=== PATIENT | male | born 1940 | race Caucasian/White ===

== ENCOUNTER 2019-09-13 07:03 | Day surgery (SDC) | payer MEDICARE, BC ==
--- NOTE | 2019-09-11 13:39 | NUR ---
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 SHE STATED SHE SPOKE WITH THE PT YEST AND THE PT HAD SEEN DR. LAGUNA IN HIS OFFICE AND GOT THE APPROVAL TO BE OFF HIS PLAVIX SO PT FOLLOW HIS DIRECTION. ALICIA STATE SHE CALLED LUZ ELENA'S OFFICE AND REQUESTED A CLEARANCE BUT HASN'T RECEIVED ANYTHING BACK AT THIS TIME.
[~2019-09-13] VITALS: Ht 170.2 cm; Wt 70.8 kg
[~2019-09-13 07:03] MED LIST: COREG 3.1253.125 MG PO; ISOSORBIDE MONO60 M1 PO; LIPITOR80 MG PO; PLAVIX75 MG PO
[2019-09-13 08:15] VITALS: BP 110/67; Ht 170.2 cm; Wt 70.8 kg
[2019-09-13 08:22] LABS: HEMOGLOBIN 13.6 g/dL (13.5-17.5); MCH 31.3 pg (26.0-34.0); MCV 92.2 fL (80.0-100.0); MEAN PLATELET VOLUME 9.7 fL (7.4-10.4); RBC 4.34 10x6/uL (4.20-6.10); RDW 13.9 % (11.5-14.5); WBC 5.6 10x3/uL (4.8-10.8)
--- NOTE | 2019-09-13 11:58 | NUR ---
PROCEDURE CANCELLED D/T PT TAKING ASA. IV D/C'D AND PT ADVISED TO F/U OF DR. GARCIA AND METAL FORGER'S ASSISTANT.
== END 2019-09-13 11:52 | disposition home or self-care (01) ==
LOC: D.OPS 07:03 → D.PAN 08:15 → D.OPS 09:40
PROVIDERS: Anesthesiology; ATTEND Urology
DX: G57.91 Unspecified mononeuropathy of right lower limb (principal); N20.0 Calculus of kidney; Z53.9 Procedure and treatment not carried out, unspecified reason

== ENCOUNTER 2019-09-27 06:43 | Day surgery (SDC) | payer MEDICARE, BC ==
[~2019-09-27] VITALS: Ht 170.2 cm; Wt 70.8 kg
[2019-09-27] MEDS ORDERED: BAYER CHEWABLE81 MG PO (07:03)
[2019-09-27 07:11] VITALS: BP 109/60; Ht 170.2 cm; Wt 70.8 kg
[2019-09-27 07:20] LABS: HEMATOCRIT 40.9 % (42.0-54.0); HEMOGLOBIN 13.6 g/dL (13.5-17.5); MCH 31.3 pg (26.0-34.0); MCHC 33.3 g/dL (31.0-37.0); MEAN PLATELET VOLUME 9.4 fL (7.4-10.4); RBC 4.35 10x6/uL (4.20-6.10); RDW 13.7 % (11.5-14.5); WBC 5.5 10x3/uL (4.8-10.8)
--- NOTE | 2019-09-27 09:50 | OP ---
PATIENT NAME: JEWELS GUERRERO MEDICAL RECORD: [id number] :38 LOCATION:D.OPS ADMISSION DATE: SURGEON: KENZIE GARCIA MD DATE OF OPERATION: 09/27/2019 SURGEON: Kenzie Garcia MD ANESTHESIA: General anesthesia by Patrick Olivera CRNA DIAGNOSES: An 8-mm right lower pole renal stone, bulbar urethral stricture. PROCEDURE: Cystoscopy, right extracorporeal shock wave lithotripsy times 1500 shocks. FINDINGS: Radiodense right renal stone, bulbar urethral stricture. ESTIMATED BLOOD LOSS: None. CLINICAL HISTORY: This is a 78-year-old male with a history of kidney stones. He was found on imaging to have an 8-mm right lower pole renal stone. He wants to have this treated with lithotripsy. Due to the size of the stone, I had the intention to place a right ureteral stent. 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 He is on Plavix. The Plavix has been held four days prior to this procedure. He is not allergic to any medications. 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 DESCRIPTION OF PROCEDURE: The patient was placed on the treatment table. The stone was visualized under fluoroscopy. He was then given induction of general anesthesia. He was placed into dorsal lithotomy position. He was prepped and draped. The stone was targeted in 2 planes and treatment was started while we prepared for cystoscopy. Cystoscopy was performed using a 21-[place]izen [place] cystoscope with 30-degree lens. In the bulbar urethra was a tight urethral stricture, which could probably pass a 17-Citizen [place] scope and not the 21-Citizen [place] scope. I did not wish to incise this as he does not have consent for this. He did not give consent for this and also with his history of Plavix use, he will have a lot of bleeding from urethral stricture incision. I decided not to bother with the stent insertion. The stone did break up readily and by 1500 shocks it was not visible any further. The procedure was terminated. I will see the patient in followup in 2 weeks' time with a KUB to determine if the stone has gone. TRANSINT:[id number] Voice Confirmation ID: [id number] DOCUMENT ID: [id number] KENZIE GARCIA MD at 0950 CC: [id number] DICTATION DATE: 09/27/19902 CONDITIONING MACHINE OPERATOR: 09/27/19917 [facility] [address] [facility]
--- NOTE | 2019-09-27 10:58 | NUR ---
3132 PATIENT REPORTS HAVING SOME "MILD BURNING" IN RIGHT GROIN AREA. ASKED PT IF HE WANTED A PAIN PILL AT THIS TIME AND HE SAID HE DID NOT. 8465 PT REPORTS THAT THE BURNING IS INCREASING AND NOW WANTS A PAIN PILL.
--- NOTE | 2019-09-27 12:05 | NUR ---
1045 PT GIVEN PAIN MEDICATION REQUESTED. 1105 PT STATES PAIN/BURNING IS EASING UP SOME. HE RATES THE DISCOMFORT AT A 4 OUT OF 10 FROM A 5 OUT OF 10 EARLIER. 1106 IV DC'D. CATHETER TIP INTACT. PRESSURED HELD FOR A FEW MINUTES UNTIL BLEEDING CEASE. COBAN DRESSING APPLIED TO IV SITE. NO BLEEDING OR HEMATOMA NOTED.
== END 2019-09-27 11:16 | disposition home or self-care (01) ==
LOC: D.OPS 06:43 → D.PAN 09:00 → D.OPS 09:00
PROVIDERS: Anesthesiology; ATTEND Urology
DX: N20.0 Calculus of kidney (principal); N35.912 Unspecified bulbous urethral stricture, male

== ENCOUNTER → 2019-10-10 08:39 | Outpatient (CLI) | payer MEDICARE, BC ==
[2019-09-27 07:11] VITALS: BMI 24.5
[~2019-10-10 08:39] MED LIST changes: +BAYER CHEWABLE81 MG PO
== END | disposition home or self-care (01) ==
LOC: D.RAD 08:39
PROVIDERS: ATTEND Urology
DX: N20.0 Calculus of kidney (principal)